=== PATIENT | male | born 1960 | race Hispanic/Latino ===

== ENCOUNTER 2020-06-13 08:53 | Emergency (ER) | payer BC ==
[2020-06-13 09:31] LABS: ALT (SGPT) 32 U/L (8-55); AST (SGOT) 20 U/L (5-34); Albumin 4.6 g/dL (3.4-4.8); Alkaline Phosphatase 70 U/L (40-110); Anion Gap 17 mmol/L (10-20); BUN (Urea Nitrogen) 16 mg/dL (8.4-25.7); Bilirubin, Total 0.5 mg/dL (0.2-1.2); Calc. Creatinine Clearance 0 mL/min (70-130); Calcium 9.1 mg/dL (7.8-10.44); Carbon Dioxide 25 mmol/L (23-31); Chloride 103 mmol/L (98-107); Estimated GFR-MDRD Greater than 90; Globulin 3.2 g/dL (2.4-3.5); Glucose 106 mg/dL (80-115); Potassium 3.8 mmol/L (3.5-5.1); Protein, Total 7.8 g/dL (5.8-8.1); Sodium 141 mmol/L (136-145)
[2020-06-13 09:42] LABS: #Basophils 0.1 thou/uL (0.0-0.2); #Eosinphils 0.2 thou/uL (0.0-0.7); #Lymphocytes 2.1 thou/uL (1.20-3.40); #Monocytes 0.6 thou/uL (0.11-0.59); #Neutrophils 3.5 thou/uL (1.40-6.50); %Basophils 2.1 % (0.0-1.0); %Eosinophils 2.6 % (0.0-10.0); %Monocytes 9.6 % (0.0-10.0); %Neutrophils 53.7 % (42.0-75.0); Hemoglobin 15.3 g/dL (14.0-18.0); MDiff Complete? YES; Macrocytosis SLIGHT = 6-15 cells (100X) (0-5/hpf); Mean Corpuscular HGB CONC 31.6 g/dL (32.0-36.0); Mean Corpuscular Hemoglobin 33.1 pg (27.0-31.0); Mean Platelet Volume 7.2 fL (7.4-10.4); Platelet Count 213 thou/uL (130-400); Red Blood Cell (RBC) Count 4.62 mill/uL (4.70-6.10); White Blood Cell (WBC) Count 6.5 thou/uL (4.8-10.8)
[2020-06-13] MEDS ORDERED: predniSONE 20 MG TAB ONE (10:04)
--- NOTE | 2020-06-13 17:03 | RAD ---
PORTABLE CHEST: 06/13/20 An AP portable film at 0925 shows a normal sized heart and clear lungs. No infiltrate or effusion was seen. There is no vascular congestion or edema. Some bony spurring is noted in the right AC joint. IMPRESSION: No acute thoracic findings. POS: HOME
--- NOTE | 2020-06-13 17:03 | CT ---
CT OF THE BRAIN WITHOUT CONTRAST: 06/13/[address] shows normal sized ventricles with no shift. No intracranial bleeding, mass or sign of acute stroke was found. There were no findings to explain the patient's symptoms. There is good gr ay-white distention. The calvarium appears normal and the visible paranasal sinuses and mastoid air c ells are clear. IMPRESSION: No acute intracranial findings. Preliminary report called to [facility] in ER at 0919 on 06/13/20. If suspicion of stroke is high, an MRI would be more sensitive at detecting such. POS: HOME
== END 2020-06-13 11:04 | disposition home or self-care (01) ==
LOC: BURERS 08:53
DX: G51.0 Bell's palsy (principal)
CPT/HCPCS: 36416; 70450; 71045; 80053; 84484; 85025; 93005; 94760; 36415-59; J7512

== ENCOUNTER 2020-09-30 16:41 | Emergency (ER) | payer BC, OTHER | END 2020-09-30 17:09 | disposition home or self-care (01) | LOC: BURERS 16:41 | DX: S16.1XXA Strain of muscle, fascia and tendon at neck level, initial encounter (principal); S39.012A Strain of muscle, fascia and tendon of lower back, initial encounter; E78.5 Hyperlipidemia, unspecified; E78.00 Pure hypercholesterolemia, unspecified; I10 Essential (primary) hypertension; Z79.899 Other long term (current) drug therapy; V53.5XXA Driver of pick-up truck or van injured in collision with car, pick-up truck or van in traffic accident, initial encounter | CPT/HCPCS: 99283 ==